=== PATIENT | male | born 1980 | race Caucasian/White ===

== ENCOUNTER 2016-05-25 18:06 | Emergency (ER) | payer BC ==
[~2016-05-25] VITALS: Ht 182.9 cm; Wt 102.3 kg
[~2016-05-25 18:06] MED LIST: ASPIRIN 81M81 MG/TA2 PO; COUMADIN 77.5 MG/TAB PO; COZAAR 25MG25 MG/TAB PO; KLONOPIN 0.5MG0.5 MG PO; KLONOPIN 1MG1 MG PO; LAMICTAL 100MG100 MG PO; LANOXIN 0.25M0.25 MG PO; NORCO 325 MG-51 TAB PO; PERCOCET 325 MG1 TA2 PO; PRIL40 PO; RESTORIL 1515 MG/CAP PO; RYZOLT100 MG PO; SOMA 350MG350 MG/TAB PO; TOPROL XL 50MG50 MG PO; ULTRAM 50MG TAB50 MG PO; VASOTEC 2.2.5 MG/TAB PO; VASOTEC 5MG5 MG/TAB PO; ZITHROMAX Z PA250 MG PO; ZOLOFT 100MG100 MG PO
[2016-05-25 18:17] VITALS: TEMP 97.8
[2016-05-25 20:01] LABS: ADJUSTED CALCIUM 9.3 mg/dL (8.4-10.2); ALANINE AMINOTRANSFERASE 45 U/L (21-72); ALBUMIN 4.9 gm/dL (3.5-5.0); ALKALINE PHOSPHATASE 67 U/L (50-136); ANION GAP 15 mmol/L (7-16); BILIRUBIN,TOTAL 0.8 mg/dL (0.0-1.0); BLOOD UREA NITROGEN 26 mg/dL (9-20); CARBON DIOXIDE 21 mmol/L (22-30); CHLORIDE 101 mmol/L (98-107); CREATININE, serum 1.01 mg/dL (0.66-1.25); GLUCOSE 97 mg/dL (74-106); POTASSIUM 4.3 mmol/L (3.4-5.0); SODIUM 138 mmol/L (137-145); TOTAL PROTEIN 8.5 gm/dL (6.4-8.2)
[2016-05-25 20:04] LABS: C-REACTIVE PROTEIN < 0.5 mg/dL (0.0-0.9)
[2016-05-25 20:09] LABS: BASO % 0.3 % (0.0-2.0); EOS # 0.1 (0.0-0.7); EOS % 1.3 % (0-4.0); GRAN % 73.1 % (42.2-75.2); HEMATOCRIT 41.7 % (42.0-52.0); HEMOGLOBIN 14.1 g/dl (13.5-18.0); LYMPH # 1.8 (1.2-3.4); LYMPH % 18.6 % (20.0-51.0); MEAN CELL VOLUME 81 fl (80.0-100.0); MEAN CORPUSCULAR HEMOGLOBIN 27 pg (27.0-31.0); MEAN CORPUSCULAR HGB CONC 34 g/dl (33.0-37.0); MEAN PLATELET VOLUME 9.2 fl (7.4-10.4); MONO # 0.6 (0.1-0.6); PLATELET COUNT 201 K/mm3 (130-400); RED BLOOD COUNT 5.17 M/mm3 (4.20-5.60); REDCELL DISTRIBUTION WIDTH-CV 15.1 % (11.5-14.5); WHITE BLOOD COUNT 9.5 K/mm3 (4.8-10.8)
[2016-05-25 20:10] LABS: TROPONIN-I 0.014 ng/mL (0.000-0.034)
[2016-05-25 20:15] LABS: INR 1.5 (0.8-3.0); PROTHROMBIN TIME 16.8 SECONDS (9.7-12.8)
[2016-05-25 20:18] LABS: PARTIAL THROMBOPLASTIN TIME 34.5 SECONDS (26.0-37.0)
[2016-05-25 21:20] VITALS: BP 136/88; PULSE 76
== END 2016-05-25 21:20 | disposition home or self-care (01) ==
LOC: COL.ER 18:06
PROVIDERS: Emergency Medicine
DX: R07.89 Other chest pain (principal); X50.0XXA Overexertion from strenuous movement or load, initial encounter; Z95.2 Presence of prosthetic heart valve
CPT/HCPCS: J2765; J3010; J7030; Q9967

== ENCOUNTER 2016-06-09 20:25 | Emergency (ER) | payer BC ==
[~2016-06-09] VITALS: Ht 182.9 cm; Wt 106.8 kg
[2016-06-09 20:28] VITALS: BP 146/93; PULSE 76; TEMP 97.8
== END 2016-06-09 20:58 | disposition home or self-care (01) ==
LOC: COL.ER 20:25
DX: R07.89 Other chest pain (principal); Z95.2 Presence of prosthetic heart valve; Z79.01 Long term (current) use of anticoagulants

== ENCOUNTER → 2016-06-14 | Outpatient (CLI) | payer BC ==
[~2016-06-14] MED LIST changes: +BELSOMRA20 MG PO; +COZAAR 50MG50 MG/TAB PO; +HCTZ 25MG TAB25 MG PO; +K-TAB20 PO; +LAMICTAL150 MG PO; +LIORESAL 1010 MG/TAB PO; +PHENERGAN 25 TA25 MG PO; +SOLARAZE3% TOP; +VOLTAREN GEL 1%1 TU TP; +VYVANSE20 MG PO
== END ==
LOC: BHSO 08:43
DX: F31.81 Bipolar II disorder (principal)

== ENCOUNTER 2016-06-22 18:20 | Emergency (ER) | payer BC ==
[~2016-06-22] VITALS: Ht 182.9 cm; Wt 105.4 kg
[~2016-06-22 18:20] MED LIST changes: -BELSOMRA20 MG PO; -COZAAR 50MG50 MG/TAB PO; -HCTZ 25MG TAB25 MG PO; -K-TAB20 PO; -LAMICTAL150 MG PO; -LIORESAL 1010 MG/TAB PO; -PHENERGAN 25 TA25 MG PO; -SOLARAZE3% TOP; -VOLTAREN GEL 1%1 TU TP; -VYVANSE20 MG PO
[2016-06-22 18:22] VITALS: TEMP 97.5
[2016-06-22 18:47] LABS: BASO % 0.5 % (0.0-2.0); EOS # 0.2 (0.0-0.7); EOS % 2.7 % (0-4.0); GRAN # 4.9 (1.4-6.5); GRAN % 60.4 % (42.2-75.2); HEMOGLOBIN 14.6 g/dl (13.5-18.0); LYMPH # 2.4 (1.2-3.4); LYMPH % 29.3 % (20.0-51.0); MEAN CELL VOLUME 84 fl (80.0-100.0); MEAN CORPUSCULAR HEMOGLOBIN 29 pg (27.0-31.0); MEAN CORPUSCULAR HGB CONC 34 g/dl (33.0-37.0); MEAN PLATELET VOLUME 9.1 fl (7.4-10.4); MONO # 0.5 (0.1-0.6); MONO % 6.6 % (1.7-9.3); PLATELET COUNT 198 K/mm3 (130-400); RED BLOOD COUNT 5.11 M/mm3 (4.20-5.60); REDCELL DISTRIBUTION WIDTH-CV 13.2 % (11.5-14.5); WHITE BLOOD COUNT 8.2 K/mm3 (4.8-10.8)
[2016-06-22 19:01] LABS: ALANINE AMINOTRANSFERASE 37 U/L (21-72); ALBUMIN 4.7 gm/dL (3.5-5.0); ALKALINE PHOSPHATASE 71 U/L (50-136); ANION GAP 13 mmol/L (7-16); BILIRUBIN,TOTAL 0.6 mg/dL (0.0-1.0); BLOOD UREA NITROGEN 14 mg/dL (9-20); CALCIUM 9.6 mg/dL (8.4-10.2); CARBON DIOXIDE 25 mmol/L (22-30); CHLORIDE 100 mmol/L (98-107); CREATININE, serum 1.02 mg/dL (0.66-1.25); GLUCOSE 96 mg/dL (74-106); POTASSIUM 3.7 mmol/L (3.4-5.0); SODIUM 138 mmol/L (137-145); TOTAL PROTEIN 8.2 gm/dL (6.4-8.2)
[2016-06-22 19:04] LABS: C-REACTIVE PROTEIN < 0.5 mg/dL (0.0-0.9)
[2016-06-22 19:11] LABS: B-TYPE NATRIURETIC PEPTIDE 64 pg/mL (0-125); TROPONIN-I 0.015 ng/mL (0.000-0.034)
[2016-06-22] MEDS ORDERED: ULTRAM 50MG TAB50 MG PO (20:02)
[2016-06-22] MEDS ORDERED: BELSOMRA20 MG PO (20:02)
[2016-06-22 20:03] VITALS: BP 114/78; PULSE 69
== END 2016-06-22 20:31 | disposition home or self-care (01) ==
LOC: COL.ER 18:20
PROVIDERS: Family Medicine
DX: R07.89 Other chest pain (principal); Z95.2 Presence of prosthetic heart valve; Z79.01 Long term (current) use of anticoagulants
CPT/HCPCS: J1170

== ENCOUNTER 2016-06-29 00:26 | Emergency (ER) | payer BC ==
[~2016-06-29] VITALS: Ht 182.9 cm; Wt 106.1 kg
[~2016-06-29 00:26] MED LIST changes: +BELSOMRA20 MG PO
[2016-06-29 00:30] VITALS: TEMP 97.9
[2016-06-29] MEDS ORDERED: ULTRAM 50MG TAB50 MG PO (00:51)
[2016-06-29 01:08] LABS: INR 1.2 (0.8-3.0); PROTHROMBIN TIME 13.7 SECONDS (9.7-12.8)
[2016-06-29 02:19] VITALS: BP 128/81; PULSE 68
== END 2016-06-29 02:20 | disposition home or self-care (01) ==
LOC: COL.ER 00:26
PROVIDERS: Emergency Medicine
DX: R07.9 Chest pain, unspecified (principal); Z95.2 Presence of prosthetic heart valve; R79.1 Abnormal coagulation profile; Z51.81 Encounter for therapeutic drug level monitoring; Z79.01 Long term (current) use of anticoagulants

== ENCOUNTER 2016-07-05 11:46 | Emergency (ER) | payer BC ==
[~2016-07-05] VITALS: Ht 182.9 cm; Wt 102.3 kg
[2016-07-05 11:54] VITALS: TEMP 97.7
[2016-07-05] MEDS ORDERED: KLONOPIN 0.5MG0.5 MG PO (12:00)
[2016-07-05 12:32] LABS: BASO % 0.3 % (0.0-2.0); EOS # 0.2 (0.0-0.7); EOS % 2.9 % (0-4.0); GRAN # 4.1 (1.4-6.5); GRAN % 66.1 % (42.2-75.2); HEMATOCRIT 39.8 % (42.0-52.0); HEMOGLOBIN 13.9 g/dl (13.5-18.0); INR 2.3 (0.8-3.0); LYMPH # 1.6 (1.2-3.4); LYMPH % 25.2 % (20.0-51.0); MEAN CELL VOLUME 83 fl (80.0-100.0); MEAN CORPUSCULAR HEMOGLOBIN 29 pg (27.0-31.0); MEAN CORPUSCULAR HGB CONC 35 g/dl (33.0-37.0); MEAN PLATELET VOLUME 8.9 fl (7.4-10.4); MONO # 0.3 (0.1-0.6); MONO % 5.2 % (1.7-9.3); PLATELET COUNT 171 K/mm3 (130-400); PROTHROMBIN TIME 26.5 SECONDS (9.7-12.8); RED BLOOD COUNT 4.77 M/mm3 (4.20-5.60); WHITE BLOOD COUNT 6.2 K/mm3 (4.8-10.8)
[2016-07-05 12:45] LABS: ADJUSTED CALCIUM 9.3 mg/dL (8.4-10.2); ALBUMIN 4.4 gm/dL (3.5-5.0); BILIRUBIN,TOTAL 0.7 mg/dL (0.0-1.0); C-REACTIVE PROTEIN 0.6 mg/dL (0.0-0.9); CALCIUM 9.6 mg/dL (8.4-10.2); CREATININE, serum 1.12 mg/dL (0.66-1.25); POTASSIUM 3.8 mmol/L (3.4-5.0); TOTAL PROTEIN 7.5 gm/dL (6.4-8.2)
[2016-07-05] MEDS ORDERED: NORCO 325 MG-51 TAB PO (14:21)
[2016-07-05 14:30] VITALS: BP 127/81; PULSE 75
== END 2016-07-05 14:30 | disposition home or self-care (01) ==
LOC: COL.ER 11:46
PROVIDERS: Emergency Medicine
DX: R07.89 Other chest pain (principal); Z95.2 Presence of prosthetic heart valve; Z79.01 Long term (current) use of anticoagulants

== ENCOUNTER 2016-07-16 13:12 | Emergency (ER) | payer BC ==
[~2016-07-16] VITALS: Ht 182.9 cm; Wt 106.8 kg
[2016-07-16 13:15] VITALS: TEMP 98.1
[2016-07-16 14:34] LABS: HEMATOCRIT 46.2 % (42.0-52.0); HEMOGLOBIN 15.9 g/dl (13.5-18.0); MEAN CELL VOLUME 82 fl (80.0-100.0); MEAN CORPUSCULAR HEMOGLOBIN 28 pg (27.0-31.0); MEAN CORPUSCULAR HGB CONC 34 g/dl (33.0-37.0); MEAN PLATELET VOLUME 9.3 fl (7.4-10.4); PLATELET COUNT 174 K/mm3 (130-400); RED BLOOD COUNT 5.63 M/mm3 (4.20-5.60); REDCELL DISTRIBUTION WIDTH-CV 13.2 % (11.5-14.5); WHITE BLOOD COUNT 16.4 K/mm3 (4.8-10.8)
[2016-07-16 14:43] LABS: ADD PATHOLOGY DIFF REVIEW NO
[2016-07-16 14:48] LABS: INR 2.5 (0.8-3.0); PROTHROMBIN TIME 28.3 SECONDS (9.7-12.8)
[2016-07-16 14:54] LABS: ALBUMIN 4.9 gm/dL (3.5-5.0); BILIRUBIN,TOTAL 1.2 mg/dL (0.0-1.0); CALCIUM 9.7 mg/dL (8.4-10.2); CREATININE, serum 1.04 mg/dL (0.66-1.25); POTASSIUM 4.1 mmol/L (3.4-5.0); TOTAL PROTEIN 8.4 gm/dL (6.4-8.2)
[2016-07-16 15:11] LABS: BAND 26 % (0-10); NEUTROPHILS 69 % (42.0-75.2); PLATELET ESTIMATE NORMAL (NORMAL); TOTAL CELLS COUNTED 100
[2016-07-16] MEDS ORDERED: PHENERGAN 25 TA25 MG PO (16:27)
[2016-07-16 16:36] VITALS: BP 109/68; PULSE 96
== END 2016-07-16 16:38 | disposition home or self-care (01) ==
LOC: COL.ER 13:12
PROVIDERS: Physician Assistant
DX: R11.10 Vomiting, unspecified (principal); R10.84 Generalized abdominal pain; Z95.2 Presence of prosthetic heart valve; Z79.01 Long term (current) use of anticoagulants; F31.9 Bipolar disorder, unspecified
CPT/HCPCS: J1170; J2405; J2550; J7030; Q9967

== ENCOUNTER 2016-08-17 20:45 | Emergency (ER) | payer BC ==
[~2016-08-17] VITALS: Ht 182.9 cm; Wt 110.6 kg
[~2016-08-17 20:45] MED LIST changes: +PHENERGAN 25 TA25 MG PO
[2016-08-17 20:56] VITALS: TEMP 98.3
[2016-08-17] MEDS ORDERED: KLONOPIN 1MG1 MG PO (21:00)
[2016-08-17] MEDS ORDERED: COZAAR 50MG50 MG/TAB PO (21:01)
[2016-08-17] MEDS ORDERED: LAMICTAL150 MG PO (21:03)
[2016-08-17 22:27] VITALS: BP 126/78; PULSE 68
== END 2016-08-17 22:28 | disposition home or self-care (01) ==
LOC: COL.ER 20:45
DX: M54.2 Cervicalgia (principal); S00.93XA Contusion of unspecified part of head, initial encounter; W19.XXXA Unspecified fall, initial encounter

== ENCOUNTER 2016-09-09 19:14 | Emergency (ER) | payer BC ==
[~2016-09-09] VITALS: Wt 111.4 kg
[~2016-09-09 19:14] MED LIST changes: +COZAAR 50MG50 MG/TAB PO; +LAMICTAL150 MG PO
[2016-09-09 19:16] VITALS: TEMP 98
[2016-09-09] MEDS ORDERED: ULTRAM 50MG TAB50 MG PO (19:59)
[2016-09-09 20:09] VITALS: BP 129/85; PULSE 75
== END 2016-09-09 20:10 | disposition home or self-care (01) ==
LOC: COL.ER 19:14
DX: R07.89 Other chest pain (principal); Z95.2 Presence of prosthetic heart valve; F31.9 Bipolar disorder, unspecified; Z79.01 Long term (current) use of anticoagulants

== ENCOUNTER → 2016-09-10 | Outpatient (CLI) | payer BC ==
[~2016-09-10] MED LIST changes: +HCTZ 25MG TAB25 MG PO; +K-TAB20 PO; +LIORESAL 1010 MG/TAB PO; +SOLARAZE3% TOP; +VOLTAREN GEL 1%1 TU TP; +VYVANSE20 MG PO
== END ==
LOC: BHSO 10:27
DX: F31.81 Bipolar II disorder (principal)

== ENCOUNTER 2016-09-22 14:22 | Emergency (ER) | payer BC ==
[~2016-09-22] VITALS: Ht 182.9 cm; Wt 104.5 kg
[~2016-09-22 14:22] MED LIST changes: -HCTZ 25MG TAB25 MG PO; -K-TAB20 PO; -LIORESAL 1010 MG/TAB PO; -SOLARAZE3% TOP; -VOLTAREN GEL 1%1 TU TP; -VYVANSE20 MG PO
[2016-09-22] MEDS ORDERED: VYVANSE20 MG PO (15:01)
[2016-09-22] MEDS ORDERED: ULTRAM 50MG TAB50 MG PO (15:29)
[2016-09-22 16:01] VITALS: BP 137/85; PULSE 71; TEMP 98.3
== END 2016-09-22 16:04 | disposition home or self-care (01) ==
LOC: COL.ER 14:22
DX: R07.89 Other chest pain (principal); G89.22 Chronic post-thoracotomy pain; Z79.01 Long term (current) use of anticoagulants; Z95.2 Presence of prosthetic heart valve; I10 Essential (primary) hypertension; F41.9 Anxiety disorder, unspecified; F32.9 Major depressive disorder, single episode, unspecified

== ENCOUNTER 2016-09-30 14:16 | Emergency (ER) | payer BC ==
[~2016-09-30] VITALS: Ht 182.9 cm; Wt 104.5 kg
[~2016-09-30 14:16] MED LIST changes: +VYVANSE20 MG PO
[2016-09-30 14:24] VITALS: TEMP 98.3
[2016-09-30] MEDS ORDERED: SOLARAZE3% TOP (15:21)
[2016-09-30] MEDS ORDERED: VOLTAREN GEL 1%1 TU TP (16:16)
[2016-09-30 16:31] VITALS: BP 141/85; PULSE 70
== END 2016-09-30 16:32 | disposition home or self-care (01) ==
LOC: COL.ER 14:16
DX: G89.28 Other chronic postprocedural pain (principal); R07.89 Other chest pain; R07.1 Chest pain on breathing; Z95.2 Presence of prosthetic heart valve; Z79.01 Long term (current) use of anticoagulants
CPT/HCPCS: J1885

== ENCOUNTER 2016-10-01 19:48 | Emergency (ER) | payer BC ==
[~2016-10-01] VITALS: Ht 182.9 cm; Wt 106.8 kg
[~2016-10-01 19:48] MED LIST changes: +SOLARAZE3% TOP; +VOLTAREN GEL 1%1 TU TP
[2016-10-01 19:50] VITALS: TEMP 98.1
[2016-10-01 21:11] VITALS: BP 148/78; PULSE 78
== END 2016-10-01 21:12 | disposition home or self-care (01) ==
LOC: COL.ER 19:48
DX: R07.89 Other chest pain (principal); Z09 Encounter for follow-up examination after completed treatment for conditions other than malignant neoplasm; Z95.2 Presence of prosthetic heart valve; Z79.01 Long term (current) use of anticoagulants
CPT/HCPCS: J1170

== ENCOUNTER 2016-10-06 16:56 | Emergency (ER) | payer BC ==
[~2016-10-06] VITALS: Ht 182.9 cm; Wt 104.5 kg
[2016-10-06 16:59] VITALS: TEMP 97.6
[2016-10-06 18:01] VITALS: BP 138/86; PULSE 64
== END 2016-10-06 18:01 | disposition home or self-care (01) ==
LOC: COL.ER 16:56
DX: R07.89 Other chest pain (principal); R07.1 Chest pain on breathing; Z95.2 Presence of prosthetic heart valve; Z79.01 Long term (current) use of anticoagulants; F31.9 Bipolar disorder, unspecified

== ENCOUNTER → 2016-10-11 | Outpatient (CLI) | payer BC ==
[~2016-10-11] MED LIST changes: +HCTZ 25MG TAB25 MG PO; +K-TAB20 PO; +LIORESAL 1010 MG/TAB PO
== END ==
LOC: BHSO 11:08
DX: F60.0 Paranoid personality disorder (principal)

== ENCOUNTER 2016-10-17 17:02 | Emergency (ER) | payer BC ==
[~2016-10-17] VITALS: Ht 182.9 cm; Wt 99.5 kg
[~2016-10-17 17:02] MED LIST changes: -HCTZ 25MG TAB25 MG PO; -K-TAB20 PO; -LIORESAL 1010 MG/TAB PO
[2016-10-17 17:10] VITALS: TEMP 97.8
[2016-10-17 19:05] VITALS: BP 128/78; PULSE 79
== END 2016-10-17 19:07 | disposition home or self-care (01) ==
LOC: COL.ER 17:02
DX: G89.29 Other chronic pain (principal); R07.89 Other chest pain; I10 Essential (primary) hypertension; K21.9 Gastro-esophageal reflux disease without esophagitis; F31.9 Bipolar disorder, unspecified; Z87.891 Personal history of nicotine dependence; Z79.01 Long term (current) use of anticoagulants; Z79.82 Long term (current) use of aspirin; Z95.2 Presence of prosthetic heart valve

== ENCOUNTER → 2016-10-29 | Outpatient (CLI) | payer BC ==
[~2016-10-29] MED LIST changes: +HCTZ 25MG TAB25 MG PO; +K-TAB20 PO; +LIORESAL 1010 MG/TAB PO
== END ==
LOC: MHCPAIN 11:02
DX: G89.29 Other chronic pain (principal); R07.9 Chest pain, unspecified; F17.210 Nicotine dependence, cigarettes, uncomplicated
CPT/HCPCS: G0463

== ENCOUNTER → 2016-11-08 | Outpatient (CLI) | payer BC | LOC: BHSO 11:39 | DX: F90.0 Attention-deficit hyperactivity disorder, predominantly inattentive type (principal) ==

== ENCOUNTER 2016-11-14 15:40 | Emergency (ER) | payer BC ==
[~2016-11-14] VITALS: Ht 182.9 cm; Wt 104.5 kg
[~2016-11-14 15:40] MED LIST changes: -HCTZ 25MG TAB25 MG PO; -K-TAB20 PO; -LIORESAL 1010 MG/TAB PO
[2016-11-14 15:41] VITALS: TEMP 98.1
[2016-11-14] MEDS ORDERED: ULTRAM 50MG TAB50 MG PO (16:29)
[2016-11-14 17:04] VITALS: BP 132/90; PULSE 62
== END 2016-11-14 17:04 | disposition home or self-care (01) ==
LOC: COL.ER 15:40
DX: G89.22 Chronic post-thoracotomy pain (principal); R07.89 Other chest pain; Z95.2 Presence of prosthetic heart valve; Z79.01 Long term (current) use of anticoagulants; I10 Essential (primary) hypertension

== ENCOUNTER 2016-11-23 20:13 | Emergency (ER) | payer BC ==
[~2016-11-23] VITALS: Ht 182.9 cm; Wt 102.3 kg
[2016-11-23 20:19] VITALS: TEMP 97
[2016-11-23 20:48] LABS: BASO % 0.4 % (0.0-2.0); EOS # 0.2 (0.0-0.7); EOS % 1.7 % (0-4.0); GRAN % 65.9 % (42.2-75.2); HEMATOCRIT 42.2 % (42.0-52.0); HEMOGLOBIN 14.7 g/dl (13.5-18.0); LYMPH # 2.3 (1.2-3.4); LYMPH % 24.8 % (20.0-51.0); MEAN CELL VOLUME 84 fl (80.0-100.0); MEAN CORPUSCULAR HEMOGLOBIN 29 pg (27.0-31.0); MEAN CORPUSCULAR HGB CONC 35 g/dl (33.0-37.0); MEAN PLATELET VOLUME 9.1 fl (7.4-10.4); MONO # 0.6 (0.1-0.6); MONO % 6.8 % (1.7-9.3); PLATELET COUNT 187 K/mm3 (130-400); RED BLOOD COUNT 5.04 M/mm3 (4.20-5.60); REDCELL DISTRIBUTION WIDTH-CV 13.3 % (11.5-14.5); WHITE BLOOD COUNT 9.2 K/mm3 (4.8-10.8)
[2016-11-23 21:00] LABS: PARTIAL THROMBOPLASTIN TIME 35.3 SECONDS (26.0-37.0)
[2016-11-23 21:26] LABS: ALANINE AMINOTRANSFERASE 26 U/L (21-72); ALBUMIN 4.6 gm/dL (3.5-5.0); ALKALINE PHOSPHATASE 67 U/L (50-136); ANION GAP 13 mmol/L (7-16); BILIRUBIN,TOTAL 0.5 mg/dL (0.0-1.0); BLOOD UREA NITROGEN 13 mg/dL (9-20); CALCIUM 9.5 mg/dL (8.4-10.2); CARBON DIOXIDE 23 mmol/L (22-30); CHLORIDE 104 mmol/L (98-107); CREATININE, serum 1.04 mg/dL (0.66-1.25); GLUCOSE 91 mg/dL (74-106); POTASSIUM 3.5 mmol/L (3.4-5.0); SODIUM 140 mmol/L (137-145); TOTAL PROTEIN 7.7 gm/dL (6.4-8.2)
[2016-11-23 21:37] LABS: TROPONIN-I < 0.012 ng/mL (0.000-0.034)
[2016-11-23 22:21] VITALS: BP 136/88; PULSE 76
== END 2016-11-23 22:39 | disposition home or self-care (01) ==
LOC: COL.ER 20:13
PROVIDERS: Emergency Medicine
DX: R07.89 Other chest pain (principal); Z95.2 Presence of prosthetic heart valve; F31.9 Bipolar disorder, unspecified; F43.10 Post-traumatic stress disorder, unspecified; F41.9 Anxiety disorder, unspecified; G89.22 Chronic post-thoracotomy pain
CPT/HCPCS: J3010

== ENCOUNTER 2016-11-28 00:21 | Emergency (ER) | payer BC ==
[~2016-11-28] VITALS: Ht 182.9 cm; Wt 100.0 kg
[2016-11-28 00:24] VITALS: TEMP 98
[2016-11-28 00:48] LABS: BASO # 0.1 (0.0-0.2); BASO % 0.5 % (0.0-2.0); EOS # 0.2 (0.0-0.7); EOS % 1.7 % (0-4.0); GRAN # 6.2 (1.4-6.5); GRAN % 65.2 % (42.2-75.2); HEMATOCRIT 43.1 % (42.0-52.0); HEMOGLOBIN 14.7 g/dl (13.5-18.0); LYMPH # 2.5 (1.2-3.4); LYMPH % 26.6 % (20.0-51.0); MEAN CELL VOLUME 84 fl (80.0-100.0); MEAN CORPUSCULAR HEMOGLOBIN 29 pg (27.0-31.0); MEAN CORPUSCULAR HGB CONC 34 g/dl (33.0-37.0); MEAN PLATELET VOLUME 9.4 fl (7.4-10.4); MONO # 0.5 (0.1-0.6); MONO % 5.6 % (1.7-9.3); PLATELET COUNT 177 K/mm3 (130-400); RED BLOOD COUNT 5.15 M/mm3 (4.20-5.60); REDCELL DISTRIBUTION WIDTH-CV 13.2 % (11.5-14.5); WHITE BLOOD COUNT 9.5 K/mm3 (4.8-10.8)
[2016-11-28] MEDS ORDERED: COUMADIN 77.5 MG/TAB PO (00:48)
[2016-11-28] MEDS ORDERED: KLONOPIN 0.5MG0.5 MG PO (00:50)
[2016-11-28 00:59] LABS: ADJUSTED CALCIUM 8.6 mg/dL (8.4-10.2); ALANINE AMINOTRANSFERASE 24 U/L (21-72); ALBUMIN 4.5 gm/dL (3.5-5.0); ALKALINE PHOSPHATASE 69 U/L (50-136); ANION GAP 13 mmol/L (7-16); BILIRUBIN,TOTAL 0.7 mg/dL (0.0-1.0); BLOOD UREA NITROGEN 15 mg/dL (9-20); CARBON DIOXIDE 23 mmol/L (22-30); CHLORIDE 102 mmol/L (98-107); CREATININE, serum 0.98 mg/dL (0.66-1.25); GLUCOSE 109 mg/dL (74-106); POTASSIUM 3.4 mmol/L (3.4-5.0); SODIUM 138 mmol/L (137-145); TOTAL PROTEIN 7.5 gm/dL (6.4-8.2)
[2016-11-28 01:17] LABS: TROPONIN-I < 0.012 ng/mL (0.000-0.034)
[2016-11-28 01:43] VITALS: BP 127/74; PULSE 80
== END 2016-11-28 01:44 | disposition home or self-care (01) ==
LOC: COL.ER 00:21
PROVIDERS: Emergency Medicine
DX: R07.89 Other chest pain (principal); E78.5 Hyperlipidemia, unspecified; F31.9 Bipolar disorder, unspecified; F90.9 Attention-deficit hyperactivity disorder, unspecified type; Z95.2 Presence of prosthetic heart valve; Z79.82 Long term (current) use of aspirin; Z79.01 Long term (current) use of anticoagulants

== ENCOUNTER → 2016-11-29 | Outpatient (CLI) | payer BC ==
[~2016-11-29] MED LIST changes: +HCTZ 25MG TAB25 MG PO; +K-TAB20 PO; +LIORESAL 1010 MG/TAB PO
== END ==
LOC: MHCPAIN 11:20
DX: G89.29 Other chronic pain (principal); R07.89 Other chest pain; M79.1 Myalgia; F17.200 Nicotine dependence, unspecified, uncomplicated
CPT/HCPCS: G0463

== ENCOUNTER 2016-12-01 22:29 | Emergency (ER) | payer BC ==
[~2016-12-01] VITALS: Ht 182.9 cm; Wt 102.7 kg
[~2016-12-01 22:29] MED LIST changes: -HCTZ 25MG TAB25 MG PO; -K-TAB20 PO; -LIORESAL 1010 MG/TAB PO
[2016-12-01 22:32] VITALS: BP 151/94; TEMP 98.2
[2016-12-01 23:11] LABS: BASO % 0.4 % (0.0-2.0); EOS # 0.2 (0.0-0.7); EOS % 1.6 % (0-4.0); GRAN # 6.7 (1.4-6.5); GRAN % 68.1 % (42.2-75.2); HEMATOCRIT 40.9 % (42.0-52.0); LYMPH # 2.3 (1.2-3.4); LYMPH % 23.4 % (20.0-51.0); MEAN CELL VOLUME 84 fl (80.0-100.0); MEAN CORPUSCULAR HEMOGLOBIN 29 pg (27.0-31.0); MEAN CORPUSCULAR HGB CONC 34 g/dl (33.0-37.0); MEAN PLATELET VOLUME 9.3 fl (7.4-10.4); MONO # 0.6 (0.1-0.6); MONO % 6.1 % (1.7-9.3); PLATELET COUNT 170 K/mm3 (130-400); RED BLOOD COUNT 4.88 M/mm3 (4.20-5.60); REDCELL DISTRIBUTION WIDTH-CV 13.3 % (11.5-14.5); WHITE BLOOD COUNT 9.8 K/mm3 (4.8-10.8)
[2016-12-01] MEDS ORDERED: LIORESAL 1010 MG/TAB PO (23:11)
[2016-12-01 23:15] LABS: INR 2.9 (0.8-3.0); PROTHROMBIN TIME 33.8 SECONDS (9.7-12.8)
[2016-12-01 23:21] LABS: CALCIUM 9.4 mg/dL (8.4-10.2); CREATININE, serum 1.05 mg/dL (0.66-1.25); POTASSIUM 3.9 mmol/L (3.4-5.0)
[2016-12-02] MEDS ORDERED: HCTZ 25MG TAB25 MG PO (00:09)
[2016-12-02 00:19] VITALS: PULSE 68
== END 2016-12-02 00:20 | disposition home or self-care (01) ==
LOC: COL.ER 22:29
PROVIDERS: Emergency Medicine
DX: R60.9 Edema, unspecified (principal); I10 Essential (primary) hypertension; Z79.01 Long term (current) use of anticoagulants

== ENCOUNTER 2016-12-21 20:09 | Emergency (ER) | payer BC ==
[~2016-12-21] VITALS: Ht 182.9 cm; Wt 100.0 kg
[~2016-12-21 20:09] MED LIST changes: +HCTZ 25MG TAB25 MG PO; +LIORESAL 1010 MG/TAB PO
[2016-12-21 20:12] VITALS: TEMP 98.4
[2016-12-21 20:56] LABS: ANION GAP 11 mmol/L (7-16); BLOOD UREA NITROGEN 13 mg/dL (9-20); CALCIUM 9.6 mg/dL (8.4-10.2); CARBON DIOXIDE 29 mmol/L (22-30); CHLORIDE 94 mmol/L (98-107); CREATININE, serum 1.12 mg/dL (0.66-1.25); GLUCOSE 110 mg/dL (74-106); INR 1.7 (0.8-3.0); PROTHROMBIN TIME 19.4 SECONDS (9.7-12.8); SODIUM 134 mmol/L (137-145)
[2016-12-21 20:58] LABS: POTASSIUM 2.6 mmol/L (3.4-5.0)
[2016-12-21 21:20] LABS: TROPONIN-I < 0.012 ng/mL (0.000-0.034)
[2016-12-21] MEDS ORDERED: K-TAB20 PO (22:17)
[2016-12-21 22:21] VITALS: BP 129/85; PULSE 77
== END 2016-12-21 22:22 | disposition home or self-care (01) ==
LOC: COL.ER 20:09
PROVIDERS: Physician Assistant
DX: R07.9 Chest pain, unspecified (principal); E87.6 Hypokalemia; R00.2 Palpitations; F17.210 Nicotine dependence, cigarettes, uncomplicated; F31.9 Bipolar disorder, unspecified; Z95.2 Presence of prosthetic heart valve; Z79.01 Long term (current) use of anticoagulants

== ENCOUNTER 2016-12-22 18:14 | Emergency (ER) | payer BC ==
[~2016-12-22] VITALS: Ht 182.9 cm; Wt 100.0 kg
[~2016-12-22 18:14] MED LIST changes: +K-TAB20 PO
[2016-12-22 18:17] VITALS: TEMP 98.4
[2016-12-22 19:23] LABS: INR 1.9 (0.8-3.0); PROTHROMBIN TIME 21.6 SECONDS (9.7-12.8)
[2016-12-22 19:33] LABS: ANION GAP 10 mmol/L (7-16); BLOOD UREA NITROGEN 16 mg/dL (9-20); CALCIUM 9.6 mg/dL (8.4-10.2); CARBON DIOXIDE 28 mmol/L (22-30); CHLORIDE 97 mmol/L (98-107); CREATININE, serum 1.08 mg/dL (0.66-1.25); GLUCOSE 105 mg/dL (74-106); SODIUM 136 mmol/L (137-145)
[2016-12-22 20:01] LABS: TROPONIN-I < 0.012 ng/mL (0.000-0.034)
[2016-12-22 20:18] VITALS: BP 148/93; PULSE 92
== END 2016-12-22 20:20 | disposition home or self-care (01) ==
LOC: COL.ER 18:14
PROVIDERS: Nurse Practitioner
DX: R07.9 Chest pain, unspecified (principal); I10 Essential (primary) hypertension; Z95.2 Presence of prosthetic heart valve; Z79.01 Long term (current) use of anticoagulants; R07.89 Other chest pain; G89.29 Other chronic pain; F31.9 Bipolar disorder, unspecified; F90.9 Attention-deficit hyperactivity disorder, unspecified type; Z87.891 Personal history of nicotine dependence; R06.02 Shortness of breath; R42 Dizziness and giddiness; R00.2 Palpitations

== ENCOUNTER 2016-12-27 12:14 | Emergency (ER) | payer BC ==
[~2016-12-27] VITALS: Ht 182.9 cm; Wt 100.0 kg
[2016-12-27 12:17] VITALS: BP 137/83; PULSE 64; TEMP 98.2
== END 2016-12-27 13:47 | disposition home or self-care (01) ==
LOC: COL.ER 12:14
DX: I80.8 Phlebitis and thrombophlebitis of other sites (principal); F31.9 Bipolar disorder, unspecified; F90.9 Attention-deficit hyperactivity disorder, unspecified type; Z86.79 Personal history of other diseases of the circulatory system; Z79.82 Long term (current) use of aspirin; Z79.01 Long term (current) use of anticoagulants; Z98.890 Other specified postprocedural states

== ENCOUNTER → 2017-02-28 | Outpatient (CLI) | payer BC | LOC: MHCPAIN 11:16 | DX: G89.29 Other chronic pain (principal); M79.1 Myalgia; R07.89 Other chest pain; F17.210 Nicotine dependence, cigarettes, uncomplicated; Z79.82 Long term (current) use of aspirin | CPT/HCPCS: G0463 ==

== ENCOUNTER 2018-02-06 17:45 | Emergency (ER) | payer BC, MEDICAID ==
[~2018-02-06] VITALS: Ht 182.9 cm; Wt 106.8 kg
[2018-02-06 17:55] VITALS: TEMP 98.4
[2018-02-06 19:46] VITALS: BP 128/77; PULSE 70
== END 2018-02-06 19:45 | disposition home or self-care (01) ==
LOC: COL.ER 17:45
DX: R07.89 Other chest pain (principal); I10 Essential (primary) hypertension; F32.9 Major depressive disorder, single episode, unspecified; Z98.890 Other specified postprocedural states; Z95.2 Presence of prosthetic heart valve; Z79.82 Long term (current) use of aspirin; Z79.01 Long term (current) use of anticoagulants

== ENCOUNTER 2018-04-01 23:02 | Emergency (ER) | payer MEDICAID ==
[~2018-04-01] VITALS: Ht 182.9 cm; Wt 106.8 kg
[2018-04-01 23:16] VITALS: BP 139/91; TEMP 97
[2018-04-02] MEDS ORDERED: ULTRAM 50MG TAB50 MG PO (00:22)
[2018-04-02 00:43] VITALS: PULSE 83
== END 2018-04-02 00:44 | disposition home or self-care (01) ==
LOC: COL.ER 23:02
DX: R07.89 Other chest pain (principal); Z98.890 Other specified postprocedural states; Z79.82 Long term (current) use of aspirin; Z79.01 Long term (current) use of anticoagulants

== ENCOUNTER 2018-04-05 01:50 | Emergency (ER) | payer MEDICAID ==
[~2018-04-05] VITALS: Ht 182.9 cm; Wt 106.8 kg
[2018-04-05 01:53] VITALS: BP 152/93; TEMP 97.9
[2018-04-05 02:40] VITALS: PULSE 62
== END 2018-04-05 02:43 | disposition home or self-care (01) ==
LOC: COL.ER 01:50
DX: G89.29 Other chronic pain (principal); R07.2 Precordial pain; Z79.01 Long term (current) use of anticoagulants; Z79.82 Long term (current) use of aspirin

== ENCOUNTER 2018-04-25 20:47 | Emergency (ER) | payer MEDICAID ==
[~2018-04-25] VITALS: Ht 182.9 cm; Wt 106.8 kg
[2018-04-25 20:52] VITALS: TEMP 97.4
[2018-04-25] MEDS ORDERED: HYZAAR 50-12.1 UDTAB PO (21:05)
[2018-04-25 22:15] VITALS: BP 116/73; PULSE 69
== END 2018-04-25 22:16 | disposition home or self-care (01) ==
LOC: COL.ER 20:47
DX: R07.89 Other chest pain (principal); F31.9 Bipolar disorder, unspecified; F90.9 Attention-deficit hyperactivity disorder, unspecified type; Z86.79 Personal history of other diseases of the circulatory system; Z98.890 Other specified postprocedural states; Z79.82 Long term (current) use of aspirin; Z79.01 Long term (current) use of anticoagulants

== ENCOUNTER 2018-05-13 02:02 | Emergency (ER) | payer MEDICAID ==
[~2018-05-13] VITALS: Ht 182.9 cm; Wt 106.8 kg
[~2018-05-13 02:02] MED LIST changes: +HYZAAR 50-12.1 UDTAB PO
[2018-05-13 02:07] VITALS: BP 136/83; TEMP 98.6
[2018-05-13 02:48] VITALS: PULSE 69
== END 2018-05-13 02:49 | disposition home or self-care (01) ==
LOC: COL.ER 02:02
DX: R07.89 Other chest pain (principal)

== ENCOUNTER 2018-05-20 19:00 | Emergency (ER) | payer MEDICAID ==
[~2018-05-20] VITALS: Ht 182.9 cm; Wt 109.1 kg
[2018-05-20 19:03] VITALS: BP 138/80; TEMP 97.7
[2018-05-20] MEDS ORDERED: SEROQUEL 2525 MG/TAB PO (19:14)
[2018-05-20] MEDS ORDERED: CELEBREX 1100 MG/CAP PO (19:14)
[2018-05-20] MEDS ORDERED: AMBIEN 10MG10 MG PO (19:15)
[2018-05-20] MEDS ORDERED: NEURONTIN300 MG/CAP PO (19:15)
[2018-05-20 21:00] VITALS: PULSE 66
== END 2018-05-20 21:00 | disposition home or self-care (01) ==
LOC: COL.ER 19:00
DX: R07.89 Other chest pain (principal); Z79.01 Long term (current) use of anticoagulants; Z79.82 Long term (current) use of aspirin

== ENCOUNTER 2018-05-24 00:39 | Emergency (ER) | payer MEDICAID ==
[~2018-05-24] VITALS: Ht 182.9 cm; Wt 109.1 kg
[~2018-05-24 00:39] MED LIST changes: +AMBIEN 10MG10 MG PO; +CELEBREX 1100 MG/CAP PO; +NEURONTIN300 MG/CAP PO; +SEROQUEL 2525 MG/TAB PO
[2018-05-24 00:41] VITALS: BP 158/96; TEMP 97.7
[2018-05-24 01:32] VITALS: PULSE 80
== END 2018-05-24 01:33 | disposition home or self-care (01) ==
LOC: COL.ER 00:39
DX: R07.89 Other chest pain (principal); Z79.82 Long term (current) use of aspirin

== ENCOUNTER 2018-05-26 23:52 | Emergency (ER) | payer MEDICAID ==
[~2018-05-26] VITALS: Ht 182.9 cm; Wt 109.1 kg
[2018-05-26 23:55] VITALS: BP 150/94; TEMP 98.7
[2018-05-27] MEDS ORDERED: LIDODERM 5% PATC1 EA TP (00:13)
[2018-05-27 00:45] VITALS: PULSE 81
== END 2018-05-27 00:45 | disposition home or self-care (01) ==
LOC: COL.ER 23:52
DX: R07.89 Other chest pain (principal); Z79.01 Long term (current) use of anticoagulants; Z79.82 Long term (current) use of aspirin

== ENCOUNTER 2018-06-12 15:05 | Emergency (ER) | payer MEDICAID ==
[~2018-06-12] VITALS: Ht 182.9 cm; Wt 106.8 kg
[~2018-06-12 15:05] MED LIST changes: +LIDODERM 5% PATC1 EA TP
[2018-06-12 15:09] VITALS: BP 127/79; TEMP 97.9
[2018-06-12] MEDS ORDERED: ADDERALL20 MG PO (16:17)
[2018-06-12 16:55] VITALS: PULSE 68
== END 2018-06-12 16:55 | disposition home or self-care (01) ==
LOC: COL.ER 15:05
DX: R07.89 Other chest pain (principal); Z79.82 Long term (current) use of aspirin; Z79.01 Long term (current) use of anticoagulants
CPT/HCPCS: J2270

== ENCOUNTER 2018-06-13 19:00 | Emergency (ER) | payer MEDICAID ==
[~2018-06-13] VITALS: Ht 182.9 cm; Wt 106.8 kg
[~2018-06-13 19:00] MED LIST changes: +ADDERALL20 MG PO
[2018-06-13 19:08] VITALS: BP 143/85; PULSE 88; TEMP 98.4
== END 2018-06-13 20:15 | disposition home or self-care (01) ==
LOC: COL.ER 19:00
DX: R07.89 Other chest pain (principal); I10 Essential (primary) hypertension; F31.9 Bipolar disorder, unspecified; F90.9 Attention-deficit hyperactivity disorder, unspecified type; Z79.82 Long term (current) use of aspirin; Z79.01 Long term (current) use of anticoagulants

== ENCOUNTER 2018-06-17 16:50 | Emergency (ER) | payer MEDICAID ==
[~2018-06-17] VITALS: Ht 182.9 cm; Wt 106.8 kg
[2018-06-17 16:54] VITALS: TEMP 98.4
[2018-06-17 17:17] LABS: BASO % 0.3 % (0.0-2.0); EOS # 0.1 (0.0-0.7); EOS % 1.1 % (0-4.0); GRAN # 9.1 (1.4-6.5); GRAN % 76.1 % (42.2-75.2); HEMATOCRIT 47.6 % (42.0-52.0); HEMOGLOBIN 16.1 g/dl (13.5-18.0); LYMPH # 2.1 (1.2-3.4); LYMPH % 17.6 % (20.0-51.0); MEAN CELL VOLUME 86 fl (80.0-100.0); MEAN CORPUSCULAR HEMOGLOBIN 29 pg (27.0-31.0); MEAN CORPUSCULAR HGB CONC 34 g/dl (33.0-37.0); MONO # 0.6 (0.1-0.6); MONO % 4.6 % (1.7-9.3); PLATELET COUNT 209 K/mm3 (130-400); RED BLOOD COUNT 5.56 M/mm3 (4.20-5.60); REDCELL DISTRIBUTION WIDTH-CV 12.7 % (11.5-14.5)
[2018-06-17 17:22] LABS: INR 1.7 (0.8-3.0); PROTHROMBIN TIME 19.7 SECONDS (9.7-12.8)
[2018-06-17 17:58] VITALS: BP 115/76; PULSE 68
== END 2018-06-17 18:01 | disposition home or self-care (01) ==
LOC: COL.ER 16:50
PROVIDERS: Emergency Medicine
DX: S09.90XA Unspecified injury of head, initial encounter (principal); Z79.01 Long term (current) use of anticoagulants; Z79.82 Long term (current) use of aspirin; W19.XXXA Unspecified fall, initial encounter; Y92.009 Unspecified place in unspecified non-institutional (private) residence as the place of occurrence of the external cause
CPT/HCPCS: J0780; J1200

== ENCOUNTER 2018-06-18 17:20 | Emergency (ER) | payer MEDICAID ==
[~2018-06-18] VITALS: Ht 182.9 cm; Wt 106.8 kg
[2018-06-18 17:25] VITALS: TEMP 98
[2018-06-18 18:42] VITALS: BP 134/94; PULSE 64
== END 2018-06-18 18:43 | disposition home or self-care (01) ==
LOC: COL.ER 17:20
DX: S09.90XA Unspecified injury of head, initial encounter (principal); R51 Headache; F31.9 Bipolar disorder, unspecified; F90.9 Attention-deficit hyperactivity disorder, unspecified type; M54.9 Dorsalgia, unspecified; G89.29 Other chronic pain; Z95.4 Presence of other heart-valve replacement; Z87.891 Personal history of nicotine dependence; Z79.01 Long term (current) use of anticoagulants; Z79.82 Long term (current) use of aspirin; W18.30XA Fall on same level, unspecified, initial encounter; W22.8XXA Striking against or struck by other objects, initial encounter
CPT/HCPCS: J0595

== ENCOUNTER 2018-06-19 18:01 | Emergency (ER) | payer MEDICAID ==
[~2018-06-19] VITALS: Ht 195.6 cm; Wt 106.8 kg
[2018-06-19 18:08] VITALS: BP 142/80; TEMP 98.6
[2018-06-19 18:40] VITALS: PULSE 77
== END 2018-06-19 18:40 | disposition home or self-care (01) ==
LOC: COL.ER 18:01
DX: R51 Headache (principal); R07.89 Other chest pain; G89.29 Other chronic pain; Z79.82 Long term (current) use of aspirin; Z79.01 Long term (current) use of anticoagulants; Z95.4 Presence of other heart-valve replacement; Z87.891 Personal history of nicotine dependence; W18.30XA Fall on same level, unspecified, initial encounter; W22.8XXA Striking against or struck by other objects, initial encounter; Y92.480 Sidewalk as the place of occurrence of the external cause

== ENCOUNTER 2018-06-21 05:50 | Emergency (ER) | payer MEDICAID ==
[~2018-06-21] VITALS: Ht 182.9 cm; Wt 107.7 kg
[2018-06-21 05:55] VITALS: BP 132/79; TEMP 97.7
[2018-06-21] MEDS ORDERED: ULTRAM 50MG TAB50 MG PO (06:29)
[2018-06-21 06:35] VITALS: PULSE 68
== END 2018-06-21 06:45 | disposition home or self-care (01) ==
LOC: COL.ER 05:50
DX: G89.29 Other chronic pain (principal); R51 Headache

== ENCOUNTER 2018-06-23 11:48 | Emergency (ER) | payer MEDICAID ==
[~2018-06-23] VITALS: Ht 182.9 cm; Wt 104.5 kg
[2018-06-23 11:55] VITALS: BP 151/87; PULSE 81; TEMP 98.5
[2018-06-23] MEDS ORDERED: FLEXERIL 1010 MG/TAB PO (22:06)
== END 2018-06-23 12:42 | disposition home or self-care (01) ==
LOC: COL.ER 11:48
DX: R07.89 Other chest pain (principal); Z79.82 Long term (current) use of aspirin; Z79.01 Long term (current) use of anticoagulants

== ENCOUNTER 2018-06-23 20:57 | Emergency (ER) | payer MEDICAID ==
[~2018-06-23] VITALS: Ht 182.9 cm; Wt 106.8 kg
[2018-06-23 20:59] VITALS: BP 139/82; TEMP 97.1
[2018-06-23] MEDS ORDERED: FLEXERIL 1010 MG/TAB PO (22:06)
[2018-06-23 22:12] VITALS: PULSE 67
== END 2018-06-23 22:12 | disposition home or self-care (01) ==
LOC: COL.ER 20:57
DX: G89.29 Other chronic pain (principal); R07.89 Other chest pain; F31.9 Bipolar disorder, unspecified; F90.9 Attention-deficit hyperactivity disorder, unspecified type

== ENCOUNTER 2018-06-25 11:16 | Emergency (ER) | payer MEDICAID ==
[~2018-06-25] VITALS: Ht 182.9 cm; Wt 106.8 kg
[~2018-06-25 11:16] MED LIST changes: +FLEXERIL 1010 MG/TAB PO
[2018-06-25 11:23] VITALS: BP 134/82; TEMP 97.4
[2018-06-25 11:56] VITALS: PULSE 68
== END 2018-06-25 11:57 | disposition home or self-care (01) ==
LOC: COL.ER 11:16
DX: R07.89 Other chest pain (principal); F90.9 Attention-deficit hyperactivity disorder, unspecified type; F31.9 Bipolar disorder, unspecified; Z79.82 Long term (current) use of aspirin; Z79.01 Long term (current) use of anticoagulants

== ENCOUNTER 2018-07-10 13:46 | Emergency (ER) | payer MEDICAID ==
[~2018-07-10] VITALS: Ht 182.9 cm; Wt 110.1 kg
[2018-07-10 13:54] VITALS: BP 137/82; PULSE 83; TEMP 98.3
== END 2018-07-10 17:03 | disposition home or self-care (01) ==
LOC: COL.ER 13:46
DX: G89.29 Other chronic pain (principal); R07.89 Other chest pain; F31.9 Bipolar disorder, unspecified; Z79.82 Long term (current) use of aspirin

== ENCOUNTER 2018-09-23 22:52 | Emergency (ER) | payer MEDICAID ==
[~2018-09-23] VITALS: Ht 182.9 cm; Wt 113.6 kg
[2018-09-23 23:05] VITALS: TEMP 97.7
[2018-09-23 23:38] LABS: BASO % 0.5 % (0.0-2.0); EOS # 0.2 (0.0-0.7); EOS % 2.2 % (0-4.0); GRAN # 5.3 (1.4-6.5); GRAN % 60.9 % (42.2-75.2); HEMATOCRIT 41.8 % (42.0-52.0); HEMOGLOBIN 14.4 g/dl (13.5-18.0); LYMPH # 2.3 (1.2-3.4); LYMPH % 26.8 % (20.0-51.0); MEAN CELL VOLUME 85 fl (80.0-100.0); MEAN CORPUSCULAR HEMOGLOBIN 29 pg (27.0-31.0); MEAN CORPUSCULAR HGB CONC 34 g/dl (33.0-37.0); MEAN PLATELET VOLUME 8.8 fl (7.4-10.4); MONO # 0.8 (0.1-0.6); MONO % 8.7 % (1.7-9.3); PLATELET COUNT 164 K/mm3 (130-400); RED BLOOD COUNT 4.92 M/mm3 (4.20-5.60); REDCELL DISTRIBUTION WIDTH-CV 13.1 % (11.5-14.5)
[2018-09-23 23:49] LABS: INR 3.5 (0.8-3.0); PROTHROMBIN TIME 39.7 SECONDS (9.7-12.8)
[2018-09-23 23:53] LABS: CALCIUM 9.2 mg/dL (8.4-10.2); CREATININE, serum 1.22 (0.66-1.25); POTASSIUM 4.1 mmol/L (3.4-5.0)
[2018-09-24 00:26] VITALS: BP 127/75; PULSE 80
== END 2018-09-24 00:26 | disposition home or self-care (01) ==
LOC: COL.ER 22:52
PROVIDERS: Emergency Medicine
DX: S00.93XA Contusion of unspecified part of head, initial encounter (principal); Z79.82 Long term (current) use of aspirin; Z79.01 Long term (current) use of anticoagulants; W22.8XXA Striking against or struck by other objects, initial encounter; Y92.009 Unspecified place in unspecified non-institutional (private) residence as the place of occurrence of the external cause; Y93.E1 Activity, personal bathing and showering
CPT/HCPCS: J1170; J2405

== ENCOUNTER 2018-10-16 22:50 | Emergency (ER) | payer MEDICAID ==
[~2018-10-16] VITALS: Ht 182.9 cm; Wt 118.2 kg
[2018-10-16 23:01] VITALS: TEMP 99.2
[2018-10-17 00:38] VITALS: BP 141/81; PULSE 87
== END 2018-10-17 00:38 | disposition home or self-care (01) ==
LOC: COL.ER 22:50
DX: S09.90XA Unspecified injury of head, initial encounter (principal); F31.9 Bipolar disorder, unspecified; F90.9 Attention-deficit hyperactivity disorder, unspecified type; R40.2412 Glasgow coma scale score 13-15, at arrival to emergency department; Z79.01 Long term (current) use of anticoagulants; Z87.891 Personal history of nicotine dependence; Z79.82 Long term (current) use of aspirin; W22.8XXA Striking against or struck by other objects, initial encounter; Y92.009 Unspecified place in unspecified non-institutional (private) residence as the place of occurrence of the external cause

== ENCOUNTER 2018-10-20 10:36 | Emergency (ER) | payer MEDICAID ==
[~2018-10-20] VITALS: Ht 182.9 cm; Wt 118.2 kg
[2018-10-20 10:49] VITALS: TEMP 97
[2018-10-20 12:30] LABS: INR 1.3 (0.8-3.0); PROTHROMBIN TIME 14.8 SECONDS (9.7-12.8)
[2018-10-20] MEDS ORDERED: ULTRAM 50MG TAB50 MG PO (14:04)
[2018-10-20 14:25] VITALS: BP 144/89; PULSE 63
== END 2018-10-20 14:26 | disposition home or self-care (01) ==
LOC: COL.ER 10:36
PROVIDERS: Physician Assistant
DX: F07.81 Postconcussional syndrome (principal); G44.319 Acute post-traumatic headache, not intractable; F31.9 Bipolar disorder, unspecified; I51.9 Heart disease, unspecified; G89.29 Other chronic pain; M53.3 Sacrococcygeal disorders, not elsewhere classified; Z95.2 Presence of prosthetic heart valve; Z79.01 Long term (current) use of anticoagulants; Z87.891 Personal history of nicotine dependence; W22.8XXA Striking against or struck by other objects, initial encounter
CPT/HCPCS: J1200; J1630; J2405

== ENCOUNTER 2018-10-26 01:18 | Emergency (ER) | payer MEDICAID ==
[~2018-10-26] VITALS: Ht 182.9 cm; Wt 117.7 kg
[2018-10-26 01:24] VITALS: BP 143/91; TEMP 98.4
[2018-10-26] MEDS ORDERED: VALIUM 2MG T2 MG/TAB PO (01:27)
[2018-10-26] MEDS ORDERED: VYVANSE70 MG PO (01:27)
[2018-10-26 02:27] LABS: BASO % 0.5 % (0.0-2.0); EOS # 0.1 (0.0-0.7); EOS % 1.2 % (0-4.0); GRAN # 6.4 (1.4-6.5); GRAN % 72.1 % (42.2-75.2); HEMATOCRIT 42.2 % (42.0-52.0); HEMOGLOBIN 14.6 g/dl (13.5-18.0); LYMPH # 1.7 (1.2-3.4); LYMPH % 19.8 % (20.0-51.0); MEAN CELL VOLUME 84 fl (80.0-100.0); MEAN CORPUSCULAR HEMOGLOBIN 29 pg (27.0-31.0); MEAN CORPUSCULAR HGB CONC 35 g/dl (33.0-37.0); MEAN PLATELET VOLUME 8.9 fl (7.4-10.4); MONO # 0.5 (0.1-0.6); MONO % 6.1 % (1.7-9.3); PLATELET COUNT 154 K/mm3 (130-400); RED BLOOD COUNT 5.02 M/mm3 (4.20-5.60)
[2018-10-26 02:34] LABS: PROTHROMBIN TIME 23.9 SECONDS (9.7-12.8)
[2018-10-26 02:42] LABS: ALANINE AMINOTRANSFERASE 22 U/L (21-72); ALBUMIN 4.3 gm/dL (3.5-5.0); ALKALINE PHOSPHATASE 65 U/L (50-136); ANION GAP 12 mmol/L (7-16); AST,SGOT 25 U/L (15-37); BILIRUBIN,TOTAL 0.4 mg/dL (0.0-1.0); BLOOD UREA NITROGEN 15 mg/dL (9-20); CALCIUM 9.2 mg/dL (8.4-10.2); CARBON DIOXIDE 23 mmol/L (22-30); CHLORIDE 103 mmol/L (98-107); CREATININE, serum 1.22 (0.66-1.25); GLUCOSE 118 mg/dL (74-106); LIPASE 89 U/L (23-300); POTASSIUM 3.8 mmol/L (3.4-5.0); SODIUM 139 mmol/L (137-145); TOTAL PROTEIN 7.5 gm/dL (6.4-8.2)
[2018-10-26 03:00] LABS: TROPONIN-I < 0.012 ng/mL (0.000-0.035)
[2018-10-26 03:04] VITALS: PULSE 95
[2018-10-26 03:17] LABS: D-DIMER < 200.00 ng/mLDDu (200-230)
== END 2018-10-26 03:05 | disposition left against medical advice (07) ==
LOC: COL.ER 01:18
PROVIDERS: Emergency Medicine
DX: R07.89 Other chest pain (principal); Z79.01 Long term (current) use of anticoagulants
CPT/HCPCS: J1630

== ENCOUNTER 2018-11-26 17:01 | Emergency (ER) | payer MEDICAID ==
[~2018-11-26] VITALS: Ht 182.9 cm; Wt 118.2 kg
[~2018-11-26 17:01] MED LIST changes: +VALIUM 2MG T2 MG/TAB PO; +VYVANSE70 MG PO
[2018-11-26 17:17] VITALS: BP 136/92; TEMP 98.2
[2018-11-26 18:32] VITALS: PULSE 70
== END 2018-11-26 18:34 | disposition home or self-care (01) ==
LOC: COL.ER 17:01
DX: K08.89 Other specified disorders of teeth and supporting structures (principal); F31.9 Bipolar disorder, unspecified; Z95.2 Presence of prosthetic heart valve; Z79.82 Long term (current) use of aspirin; Z79.01 Long term (current) use of anticoagulants

== ENCOUNTER 2019-01-27 15:14 | Emergency (ER) | payer MEDICAID ==
[~2019-01-27] VITALS: Ht 182.9 cm; Wt 115.9 kg
[2019-01-27 15:21] VITALS: BP 158/91; TEMP 98.4
[2019-01-27 18:32] VITALS: PULSE 98
== END 2019-01-27 18:32 | disposition home or self-care (01) ==
LOC: COL.ER 15:14
DX: K08.89 Other specified disorders of teeth and supporting structures (principal); F31.9 Bipolar disorder, unspecified; F90.9 Attention-deficit hyperactivity disorder, unspecified type; Z87.891 Personal history of nicotine dependence; Z79.82 Long term (current) use of aspirin

== ENCOUNTER 2019-04-30 01:26 | Emergency (ER) | payer MEDICAID ==
[~2019-04-30] VITALS: Ht 182.9 cm; Wt 115.9 kg
[2019-04-30 01:30] VITALS: BP 138/82; TEMP 97.9
[2019-04-30 02:01] LABS: BASO # 0.1 (0.0-0.2); BASO % 0.5 % (0.0-2.0); EOS # 0.2 (0.0-0.7); GRAN # 7.6 (1.4-6.5); GRAN % 73.8 % (42.2-75.2); HEMATOCRIT 44.5 % (42.0-52.0); LYMPH # 1.8 (1.2-3.4); LYMPH % 17.3 % (20.0-51.0); MEAN CELL VOLUME 83 fl (80.0-100.0); MEAN CORPUSCULAR HEMOGLOBIN 28 pg (27.0-31.0); MEAN CORPUSCULAR HGB CONC 34 g/dl (33.0-37.0); MONO # 0.6 (0.1-0.6); MONO % 5.7 % (1.7-9.3); PLATELET COUNT 213 K/mm3 (130-400); RED BLOOD COUNT 5.34 M/mm3 (4.20-5.60); REDCELL DISTRIBUTION WIDTH-CV 13.1 % (11.5-14.5)
[2019-04-30 02:07] LABS: INR 1.1 (0.8-3.0); PROTHROMBIN TIME 12.3 SECONDS (9.7-12.8)
[2019-04-30 02:17] LABS: ALBUMIN 4.7 gm/dL (3.5-5.0); BILIRUBIN,TOTAL 0.5 mg/dL (0.0-1.0); CALCIUM 9.6 mg/dL (8.4-10.2); CREATININE, serum 1.02 (0.66-1.25); POTASSIUM 3.7 mmol/L (3.4-5.0)
[2019-04-30] MEDS ORDERED: CEPHALEXIN500 M1 PO (02:30)
[2019-04-30] MEDS ORDERED: TESSALON PERLE200 MG PO (02:31)
[2019-04-30 02:48] VITALS: PULSE 95
[2019-04-30 03:19] LABS: D-DIMER < 200.00 ng/mLDDu (200-230)
== END 2019-04-30 02:48 | disposition home or self-care (01) ==
LOC: COL.ER 01:26
PROVIDERS: Emergency Medicine
DX: J20.9 Acute bronchitis, unspecified (principal); R79.1 Abnormal coagulation profile; Z79.01 Long term (current) use of anticoagulants

== ENCOUNTER 2019-04-30 19:21 | Emergency (ER) | payer MEDICAID ==
[~2019-04-30] VITALS: Ht 182.9 cm; Wt 115.9 kg
[~2019-04-30 19:21] MED LIST changes: +CEPHALEXIN500 M1 PO; +TESSALON PERLE200 MG PO
[2019-04-30 19:27] VITALS: BP 153/92; TEMP 98.3
[2019-04-30 21:00] VITALS: PULSE 86
== END 2019-04-30 21:00 | disposition home or self-care (01) ==
LOC: COL.ER 19:21
DX: J20.9 Acute bronchitis, unspecified (principal); I10 Essential (primary) hypertension; Z95.9 Presence of cardiac and vascular implant and graft, unspecified

== ENCOUNTER 2019-12-23 01:37 | Emergency (ER) | payer MEDICAID ==
[~2019-12-23] VITALS: Ht 182.9 cm; Wt 113.6 kg
[2019-12-23 01:41] VITALS: BP 153/92; TEMP 99
[2019-12-23] MEDS ORDERED: CONCERTA36 MG PO (01:53)
[2019-12-23] MEDS ORDERED: REXULTI4 MG PO (01:54)
[2019-12-23 02:28] VITALS: PULSE 85
== END 2019-12-23 02:28 | disposition home or self-care (01) ==
LOC: COL.ER 01:37
DX: R07.2 Precordial pain (principal); Z95.5 Presence of coronary angioplasty implant and graft; Z95.4 Presence of other heart-valve replacement; Z79.82 Long term (current) use of aspirin

== ENCOUNTER 2020-11-08 01:22 | Emergency (ER) | payer OTHER, MEDICAID ==
[~2020-11-08 01:22] MED LIST changes: +CONCERTA36 MG PO; +REXULTI4 MG PO
[2020-11-08 02:12] VITALS: TEMP 97.6
[2020-11-08 02:59] LABS: INR 3.1 (0.8-3.0); PROTHROMBIN TIME 34.5 SECONDS (9.7-12.8)
[2020-11-08 04:09] VITALS: BP 150/80; PULSE 72
== END 2020-11-08 04:09 | disposition home or self-care (01) ==
LOC: COL.ER 01:22
PROVIDERS: Emergency Medicine
DX: S20.20XA Contusion of thorax, unspecified, initial encounter (principal); F31.9 Bipolar disorder, unspecified; Z79.899 Other long term (current) drug therapy; W01.198A Fall on same level from slipping, tripping and stumbling with subsequent striking against other object, initial encounter; Y92.009 Unspecified place in unspecified non-institutional (private) residence as the place of occurrence of the external cause